=== PATIENT | male | born 1950 | race Caucasian/White ===

== ENCOUNTER 2017-10-15 07:31 | Emergency (ER) | payer MEDICARE ==
[2017-10-15 07:59] LABS: Bilirubin Negative (Negative); Blood, Urine Trace (Negative); Clarity Slightly Cloudy (Clear); Glucose, Urine (Dipstick) Negative (Negative); Leukocyte Negative (Negative); Nitrite Negative (Negative); Protein, Urine (Dipstick) Negative (Neg-Trace); Specific Gravity, Urine 1.025 (1.005-1.030); Urobilinogen 0.2 mg/dL (0.2-1.0)
[2017-10-15 08:13] LABS: Bacteria/HPF None Seen HPF (None Seen); Hyaline Casts/LPF 0-3 HYALINE CAST LPF (0-3 Hyaline); Squamous Epithelial 0-3 HPF (0-3)
== END 2017-10-15 08:26 | disposition home or self-care (01) ==
LOC: SCSER 07:31
DX: S30.813A Abrasion of scrotum and testes, initial encounter (principal); Z79.899 Other long term (current) drug therapy; X58.XXXA Exposure to other specified factors, initial encounter
CPT/HCPCS: 81003; 81015; 87086; 99284

== ENCOUNTER 2018-11-03 17:36 | Inpatient (IN) | payer MEDICARE ==
[2018-11-03] MEDS ORDERED: Pantoprazole 40 MG VIAL ONE (18:08)
[2018-11-03 18:20] LABS: #Lymphocytes 1.6 thou/uL (1.20-3.40); #Monocytes 0.8 thou/uL (0.11-0.59); #Neutrophils 13.8 thou/uL (1.40-6.50); %Basophils 0.3 % (0.0-1.0); %Lymphocytes 9.8 % (21.0-51.0); %Monocytes 4.9 % (0.0-10.0); %Neutrophils 85.1 % (42.0-75.0); Hemoglobin 18.7 g/dL (14.0-18.0); Mean Corpuscular HGB CONC 34.2 g/dL (32.0-36.0); Mean Corpuscular Hemoglobin 33.2 pg (27.0-31.0); Mean Corpuscular Volume 97.1 fL (78.0-98.0); Mean Platelet Volume 7.6 fL (7.4-10.4); Platelet Count 161 thou/uL (130-400); Red Blood Cell (RBC) Count 5.62 mill/uL (4.70-6.10); White Blood Cell (WBC) Count 16.2 thou/uL (4.8-10.8)
[2018-11-03 18:27] LABS: ALT (SGPT) 57 U/L (8-55); AST (SGOT) 31 U/L (5-34); Albumin 4.7 g/dL (3.4-4.8); Alkaline Phosphatase 66 U/L (40-150); Anion Gap 18 mmol/L (10-20); BUN (Urea Nitrogen) 27 mg/dL (8.4-25.7); Bilirubin, Total 1.7 mg/dL (0.2-1.2); CK (CPK) 56 U/L (30-200); Calc. Creatinine Clearance 0 mL/min (70-130); Calcium 10.6 mg/dL (7.8-10.44); Carbon Dioxide 28 mmol/L (23-31); Chloride 95 mmol/L (98-107); Estimated GFR-MDRD 51; Globulin 4.4 g/dL (2.4-3.5); Glucose 126 mg/dL (80-115); Lipase 24 U/L (8-78); Potassium 3.8 mmol/L (3.5-5.1); Protein, Total 9.1 g/dL (5.8-8.1); Sodium 137 mmol/L (136-145)
--- NOTE | 2018-11-03 18:59 | CT ---
CT Abdomen Pelvis W Con History: Abdominal pain and emesis and constipation. Comparison: CT abdomen and pelvis 2018 Findings: Mild atelectasis in the lung bases. No pericardial effusion. Cirrhotic morphology of the liver. Oral vein is patent. Old calcified granulomas of the spleen. Pancr eas is unremarkable. Normal proximal small bowel rotation with dilatation of the jejunum to a focal narrowing in the right upper quadrant axial image 50. There is also a focal area of abnormal hyperenhancement although could be mucosal infolding on coronal image 56 as there is dilated bowel distal to this Nonobstructive bilateral renal calculi. Prior right hemicolectomy. The distal small bowel is very thi n without any significant bowel contents. Impression: Findings of a low-grade small bowel obstruction with a gradual transition point right upp er quadrant axial image 50. Small bowel distal to the transition point is collapsed without significant bowel contents.
[2018-11-03] MEDS ORDERED: Benzocaine 20% Spray 60 ML CAN ONE (19:06)
[2018-11-03] MEDS ORDERED: Lidocaine Viscous Sol 2% 15 ml UD Cup ONE (19:06)
--- NOTE | 2018-11-03 20:08 | RAD ---
XR Chest 1 View Portable History: Chest pain Comparison: Radiograph 2011 Findings: An enteric tube is in place with tip below the diaphragm although out of field of view. Toi cified left hilar lymph nodes. Lateral plate-screw fixation right humerus. Calcified granuloma left lower lobe. No pneumothorax. No effusion. Increased pericardial fat. Impression: Enteric tube tip below diaphragm although out of field of view.
[2018-11-03] MEDS ORDERED: Ondansetron PF 4 MG/2 ML Vial IVP PRN (21:42)
[2018-11-03] MEDS ORDERED: Ondansetron ODT 4 MG TAB SL PRN (21:42)
[2018-11-03] MEDS ORDERED: Lactated Ringer's 1,000 ML IV SCH (21:45)
[2018-11-03] MEDS ORDERED: Acetaminophen 650 MG Suppository PR PRN (22:15)
--- NOTE | 2018-11-03 22:28 | PDOC.FPRHP ---
- History of Present Illness Chief Complaint: abdominal pain, distention, constipation History of Present Illness: Patient is a 68M with PMHx of partial colonic resection 15 years ago 2/2 colonic polyps, seasonal allergies and RLS who presented to the [facility] after experiencing constipation, abdominal pain, distention, and black emesis since Monday morning. He reports that the pain was sudden in onset but was relieved with emesis. This occurred multiple times throughout the 1.5 days, each time the pain being relived with emesis. Denies frequent NSAID use, frequent alcohol use, smoking, drug use. He reportedly had a colonoscopy 1 month ago that was normal. ED Course: Seen and evaluated at [facility] 2L NS 80mg Protonix Direct admit to [facility] - Allergies/Adverse Reactions Allergies Allergy/AdvReac Type Severity Reaction Status Date / Time No Known Drug Allergies Allergy Verified 11/03/18 22:11 - Home Medications Medication Instructions Recorded Confirmed Type Montelukast Sodium [Singulair] 10 mg PO DAILY PRN 11/03/18 11/03/18 History rOPINIRole HCl [Requip] 0.5 mg PO HS 11/03/18 11/03/18 History - History PMHx: seasonal allergies, restless leg syndrome PSHx: partial colonic resection 2/2 polyps, 15 years ago FHx: Mother: [place] and bilateral mastectomy for breast cancer Father: Alzheimers No hx of colon cancer Social: rare alcohol use, never smoker, no drug use - Review of Systems General: denies: fever/chills Eyes: denies: eye pain, vision changes ENT: denies: nasal congestion, rhinorrhea Respiratory: denies: cough, shortness of breath Cardiovascular: denies: chest pain Gastrointestinal: reports: vomiting, constipation, abdominal pain. denies: diarrhea, GI bleeding Genitourinary: denies: incontinence, dysuria Skin: denies: rashes, jaundice Musculoskeletal: denies: pain, swelling Neurological: denies: numbness, seizure Psychological: denies: anxiety, depression - Vital signs BP: [147/81] HR: [68] RR: [18] Tmax: [98] Pox: [98]% on [RA] Wt: [76.7kg] - Physical Exam Constitutional: NAD, awake, alert and oriented, well developed HEENT: normocephalic and atraumatic, no scleral icterus, grossly normal hearing Neck: supple, trachea midline Chest: no-tender to palpation, no lesions Heart: RRR, other (mumur present, chronic) Lungs: CTAB, no respiratory distress, good air movement Abdomen: soft, non-tender, bowel sounds present Musculoskeletal: normal structure, normal tone, ROM grossly normal Neurological: no focal deficit, normal sensation Skin: no rash/lesions, no jaundice Heme/Lymphatic: no unusual bruising or bleeding, no purpura Psychiatric: normal mood and affect, good judgment and insight, intact recent and remote memory FMR H&P: Results - Labs Result Diagrams: 11/03/18 18:05 11/03/18 18:05 Lab results: WBC 16.2 thou/uL (4.8-10.8) H 11/03/18 18:05 Hgb 18.7 g/dL (14.0-18.0) H 11/03/18 18:05 Hct 54.6 % (42.0-52.0) H 11/03/18 18:05 MCV 97.1 fL (78.0-98.0) 11/03/18 18:05 Plt Count 161 thou/uL (130-400) 11/03/18 18:05 Neutrophils % 85.1 % (42.0-75.0) H 11/03/18 18:05 Sodium 137 mmol/L (136-145) 11/03/18 18:05 Potassium 3.8 mmol/L (3.5-5.1) 11/03/18 18:05 Chloride 95 mmol/L (98-107) L 11/03/18 18:05 Carbon Dioxide 28 mmol/L (23-31) 11/03/18 18:05 BUN 27 mg/dL (8.4-25.7) H 11/03/18 18:05 Creatinine 1.39 mg/dL (0.7-1.3) H 11/03/18 18:05 Glucose 126 mg/dL (80-115) H 11/03/18 18:05 Lactic Acid 1.7 mmol/L (0.5-2.2) 11/03/18 19:47 Calcium 10.6 mg/dL (7.8-10.44) H 11/03/18 18:05 Total Bilirubin 1.7 mg/dL (0.2-1.2) H 11/03/18 18:05 AST 31 U/L (5-34) 11/03/18 18:05 ALT 57 U/L (8-55) H 11/03/18 18:05 Alkaline Phosphatase 66 U/L (40-150) 11/03/18 18:05 Creatine Kinase 56 U/L (30-200) 11/03/18 18:05 Serum Total Protein 9.1 g/dL (5.8-8.1) H 11/03/18 18:05 Albumin 4.7 g/dL (3.4-4.8) 11/03/18 18:05 Lipase 24 U/L (8-78) 11/03/18 18:05 - Radiology Interpretation CT scan - abdomen Status: report reviewed by me (Low-grade small bowel obstruction with a gradual transition point RUQ. Small bowel distal to the transition point is collapsed without significant bowel contents.) FMR H&P: A/P - Problem List (1) Small bowel obstruction Current Visit: Yes Status: Acute Code(s): K56.609 - UNSP INTESTNL OBST, UNSP TO PARTIAL VERSUS COMPLETE OBST (2) Restless leg syndrome, controlled Current Visit: Yes Status: Acute Code(s): G25.81 - RESTLESS LEGS SYNDROME - Plan 68M with PMHx of partial colonic resection 2/2 colonic polyps 15 years ago, seasonal allergies, and RLS presents with SBO. #Small Bowel Obstruction -CT abdomen showed SBO -abdomen soft, not ttp, + bs -NPO for bowel rest -IVF -Ng tube -PRN Zofran #Restless Leg Syndrome -hold home meds for now DVT Proph: SCDs Diet: NPO Code Status: Full Code Dispo: Inpatient for bowel rest and evaluation of SBO FMR H&P: Upper Level - Plan Date/Time: 11/03/18 0679 IColten MD, have evaluated this patient and agree with findings/plan as outlined by communications intern resident. Pertinent changes/additions are listed here. Brandon Mason is a 68 year old with a PMH of Restless Leg Syndrome, Seasonal alleries who presented to the [facility] ER for a 1-2 day history of abdominal pain and dark green emesis, inability to tolerate PO. He has a history of partial colon resection due to multiple polyps about 15 years ago. In [facility] ER, he had a CT abd that showed low grade small bowel obstruction. FOBT negative. Labs also significant for elevated wbc count at 16.2 and DERRICK with Cr of 1.39. NG Tube was inserted in outside ER and had return of 400 cc on bilious fluid. He was given 2 L NS in the ER and protonix. He states that he is already feeling much better after fluids and NG tube placement. We will continue decompression with NG tube and IVFs. Zofran prn for nausea. Please sign communications intern note above for full H&P. Patient's PCP is Dr. Garcia. Dr. Robin is covering Dr. Garcia's patient this weekend and Dr. Robin will take over care in the morning. Dr. Robin has been made aware of the patient and the plan of care.
[2018-11-03 23:01] VITALS: BMI 29.0
[2018-11-04 06:30] LABS: Anion Gap 12 mmol/L (10-20); BUN (Urea Nitrogen) 20 mg/dL (8.4-25.7); Calc. Creatinine Clearance 75 mL/min (70-130); Calcium 8.8 mg/dL (7.8-10.44); Carbon Dioxide 25 mmol/L (23-31); Chloride 106 mmol/L (98-107); Estimated GFR-MDRD 75; Glucose 90 mg/dL (80-115); Potassium 3.8 mmol/L (3.5-5.1); Sodium 139 mmol/L (136-145)
[2018-11-04 06:43] LABS: #Eosinphils 0.1 thou/uL (0.0-0.7); #Lymphocytes 2.2 thou/uL (1.20-3.40); #Monocytes 0.9 thou/uL (0.11-0.59); #Neutrophils 8.7 thou/uL (1.40-6.50); %Basophils 0.3 % (0.0-1.0); %Eosinophils 0.7 % (0.0-10.0); %Lymphocytes 18.3 % (21.0-51.0); %Monocytes 7.4 % (0.0-10.0); %Neutrophils 73.2 % (42.0-75.0); Hemoglobin 15.8 g/dL (14.0-18.0); Mean Corpuscular HGB CONC 33.5 g/dL (32.0-36.0); Mean Corpuscular Hemoglobin 33.6 pg (27.0-31.0); Mean Platelet Volume 8.8 fL (7.4-10.4); Platelet Count 113 thou/uL (130-400); Platelet Morphology Comment Appears Decreased; RBC Distribution Width 11.5 % (11.5-14.5); Red Blood Cell (RBC) Count 4.69 mill/uL (4.70-6.10); White Blood Cell (WBC) Count 11.9 thou/uL (4.8-10.8)
[2018-11-04] MEDS ORDERED: Ondansetron PF 4 MG/2 ML Vial IVP PRN (09:39)
[2018-11-04] MEDS: Sodium Chloride 0.9% 1,000 ML IV SCH ×2 (11:08→17:08)
--- NOTE | 2018-11-04 12:21 | HP ---
HISTORY OF PRESENT ILLNESS: This is a 68-year-old male, who presented with abdominal pain yesterday. The patient does have a history of a partial colonic resection 15 years ago. May have been from diverticulitis. He has done well since then. He presented with acute onset of abdominal pain on Monday, 2 days prior. He did not have much of an appetite and had 3 to 4 bouts of nausea and vomiting. He noted his vomitus to be dark green in color. He started a keto diet approximately 3 weeks ago. Lately, he has been increasing his fiber and eating much more vegetables that he normally would. An NG tube was placed in the emergency room and this morning, he is feeling significantly much better. He even ambulates this morning with the NG tube. PAST MEDICAL HISTORY: History of kidney stones followed by Dr. Modi on a regular basis, right arm fracture. PAST SURGICAL HISTORY: Include partial colectomy at age 50 probably related to acute diverticulitis. Last colonoscopy was September of [address] Rodríguez, which was unremarkable. FAMILY HISTORY: Mother with breast cancer. SOCIAL HISTORY: He is a nonsmoker. Drinks occasional wine and beer. He is . MEDICATIONS: 1. Singulair 10 mg daily. 2. Requip 0.5 at bedtime. ALLERGIES: NONE. REVIEW OF SYSTEMS: As above. PHYSICAL EXAMINATION: VITAL SIGNS: Temperature 98.0, pulse 65, respirations 20, pulse ox 96%, and blood pressure 130/71. GENERAL: The patient in no acute distress with the NG tube in place. HEENT: Clear. NECK: Supple. HEART: Regular rate and rhythm. LUNGS: Clear. ABDOMEN: Soft and nontender. EXTREMITIES: With no edema. LABORATORY DATA: White count 16.2 to 11.9, H and H of 15 and 45, and platelets 113. Potassium 3.8, creatinine 1.39 to 0.99, and blood sugar 90. ASSESSMENT: 1. Small bowel obstruction appears to be resolving. 2. History of a partial colectomy 20 years ago. 3. Recent change in diet, on a keto diet. 4. Normal colonoscopy in September 2018. 5. Restless legs syndrome. PLAN: 1. The patient n.p.o. at this time. 2. IV hydration. 3. NG tube in place. 4. We will consult Dr. Wyatt, General Surgery. The patient probably had a partial small bowel obstruction from scar tissue from previous surgery. It may have been triggered by a recent change in diet. Most likely needs small bowel follow-through and rule out other possible etiologies. Job ID: [id number]
[2018-11-04] MEDS: Famotidine/PF 20 mg/2ml Vial SLOW IVP SCH (20:32)
--- NOTE | 2018-11-04 22:59 | CON ---
DATE OF CONSULTATION: 11/04/2018 REQUESTING PHYSICIAN: Luis Miguel Robin MD HISTORY OF PRESENT ILLNESS: A 68-year-old man, who presented to outside hospital with a 2-day history of sudden onset upper abdominal pain, which was described as sharp and intermittent and crampy, associated with abdominal bloating, nausea, and vomiting. Emesis was initially nonbilious and it became coffee-ground. The patient was fine and presented to emergency department for evaluation. Nasogastric tube was placed at the time returning over 600 mL of bile-stained effluent. In the interim, the patient denies any fevers or chills. Last bowel movement was 3 days ago and thus the last time also he passed flatus. Normally he has 2 to 3 bowel movements daily. The patient has been on keto diet of late and also had some dark tea prior to onset of pain. CT scan of the abdomen and pelvis was obtained yesterday, which was suggestive of acute partial small-bowel obstruction. Upon my evaluation, the patient now rates his pain at 3/10. He has had no nausea or emesis since placement of the nasogastric tube. He reports no flatus. Urinary output has been adequate. PAST MEDICAL HISTORY: Significant for polyposis coli involving the right colon for which he had a partial right colectomy with primary anastomosis 20 years ago. He recently had a screening colonoscopy within the last 1 month, which was unremarkable. He has had surgery to his right shoulder. He denies any other abdominal operations. SOCIAL HISTORY: The patient is . Lives at home with his . He admits to occasional intake of ethanol in moderate amounts. He denies any cigarette smoking or illicit drug abuse. FAMILY HISTORY: Noncontributory for this patient's age. PREHOSPITAL MEDICATIONS: Include Singulair 10 mg p.o. daily and Requip 0.5 mg p.o. q.h.s. for restless legs syndrome. ALLERGIES: THE PATIENT DENIES ANY KNOWN DRUG ALLERGIES. REVIEW OF SYSTEMS: 10-point review of systems essentially unremarkable except as stated in past medical history and chief complaint. PHYSICAL EXAMINATION: GENERAL: This reveals a 68-year-old normally developed man, who is otherwise coherent and interactive and appears stated age. The patient is alert and oriented x3. He appears to be in no acute distress at time of my evaluation. VITAL SIGNS: Include blood pressure 115/66, pulse is 65, respiratory rate is 20, temperature 98 degrees Fahrenheit, oxygen saturation 96% on room air. HEENT: Reveals no jugular venous distention noted. HEART: Reveals regular rate and rhythm with 2/6 systolic murmur, which is auscultated in the left sternal border. LUNGS: Clear to auscultation bilaterally. Breathing, regular and nonlabored. ABDOMEN: Soft, nontender, nondistended. Bowel sounds in all 4 quadrants appear normoactive. Nasogastric tube is in place. Now returns clear gastric effluent in scant amount. EXTREMITIES: Reveals 2+ radial and pedal pulses bilaterally. No ankle edema is present. NEUROLOGIC: Reveals no focal deficits present. LABORATORY FINDINGS: Today include a CBC with 11,900 white blood cells, hemoglobin and hematocrit 15.8 and 47.1 respectively, platelet count is 113,000. Contrast this to CBC yesterday with 16,200 white blood cells, hemoglobin and hematocrit 18.7 and 54.6 respectively, platelet count remaining stable at 161,000. Metabolic profile today; sodium 139, potassium 3.8, chloride is 106, bicarb 25, BUN 20, creatinine 0.99, glucose is 90. I have personally reviewed the CT scan of the abdomen and pelvis, which was obtained yesterday revealing multiple distended loops of small bowel with small perhaps a transition in the right upper quadrant. There is however gas in the colon and rectum. There is no free fluid or pneumoperitoneum or pneumatosis intestinalis is noted. IMPRESSION: 1. Now resolving acute abdominal pain with nausea, vomiting, likely secondary to gastroenteritis and less likely secondary to partial small-bowel obstruction. 2. Although this patient has a previous history of abdominal surgeries, puts him at risk for adhesion-induced small-bowel obstruction. I do not suspect that to be the cause of his present symptoms, which is now resolving within 48 to 72 hours from onset. RECOMMENDATIONS: 1. Nasogastric tube will be discontinued. We will initiate clear liquid diet and encourage the patient to increase activity. 2. He will be re-evaluated within the next 24 hours and consider advancing diet if no return of abdominal pain, nausea, or vomiting. 3. If the patient's symptom recurs, we will give consideration to obtain a small-bowel follow-through to better define likely small-bowel obstruction at that time. 4. Therefore, no acute surgical indication for this patient at this time. 5. Above findings and recommendation has been discussed with the patient and his at bedside. 6. They indicated understanding information given and agree with current plans. Thank you again, Dr. Robin, for allowing me the opportunity to participate in the care of this patient. Job ID: [id number]
--- NOTE | 2018-11-05 00:59 | PRG ---
DATE OF SERVICE: 11/05/2018 SUBJECTIVE: The patient is currently on the medicine floor. He is the patient we are seeing in consultation for suspected low grade small bowel obstruction. Today, the patient had his nasogastric tube discontinued and started on a clear liquid diet. He is tolerating a diet. Denies nausea or vomiting and has begun being out of bed. Pain is controlled. OBJECTIVE: VITAL SIGNS: Stable. The patient is afebrile. GENERAL: The patient is resting comfortably in bed. He is without complaints at this time. He states that he has passed a little flatus. ABDOMEN: Soft, nontender with active bowel sounds. ASSESSMENT AND PLAN: Low grade small bowel obstruction, resolving. Plan will be to continue encouraging ambulation, being out of bed, and if he continues to tolerate clear liquids, he can be advanced. We will re-evaluate him once again tomorrow. Job ID: [id number]
[2018-11-05] MEDS: Sodium Chloride 0.9% 1,000 ML IV SCH ×2 (03:51→09:00)
[2018-11-05 05:54] LABS: #Basophils 0.1 thou/uL (0.0-0.2); #Eosinphils 0.2 thou/uL (0.0-0.7); #Lymphocytes 1.9 thou/uL (1.20-3.40); #Monocytes 0.6 thou/uL (0.11-0.59); #Neutrophils 4.5 thou/uL (1.40-6.50); %Basophils 0.8 % (0.0-1.0); %Eosinophils 2.3 % (0.0-10.0); %Lymphocytes 26.4 % (21.0-51.0); %Monocytes 8.7 % (0.0-10.0); %Neutrophils 61.8 % (42.0-75.0); Hemoglobin 14.8 g/dL (14.0-18.0); Mean Corpuscular Hemoglobin 33.9 pg (27.0-31.0); Mean Corpuscular Volume 99.8 fL (78.0-98.0); Mean Platelet Volume 8.6 fL (7.4-10.4); Platelet Count 87 thou/uL (130-400); RBC Distribution Width 11.4 % (11.5-14.5); Red Blood Cell (RBC) Count 4.37 mill/uL (4.70-6.10); White Blood Cell (WBC) Count 7.3 thou/uL (4.8-10.8)
[2018-11-05 06:09] LABS: Phosphorus 2.5 mg/dL (2.3-4.7)
[2018-11-05 06:13] LABS: Anion Gap 9 mmol/L (10-20); BUN (Urea Nitrogen) 17 mg/dL (8.4-25.7); Calc. Creatinine Clearance 70 mL/min (70-130); Calcium 8.7 mg/dL (7.8-10.44); Carbon Dioxide 25 mmol/L (23-31); Chloride 109 mmol/L (98-107); Estimated GFR-MDRD 68; Glucose 79 mg/dL (80-115); Potassium 4.1 mmol/L (3.5-5.1); Sodium 139 mmol/L (136-145)
[2018-11-05] MEDS ORDERED: PHOS-NAK 1 PKT PACK PO SCH (07:30)
[2018-11-05] MEDS: Famotidine/PF 20 mg/2ml Vial SLOW IVP SCH (08:34)
[2018-11-05] MEDS ORDERED: Enoxaparin Sodium 40 MG/0.4 ML SYRINGE SC SCH (09:00)
[2018-11-05 11:56] VITALS: BP 136/79; TEMP 97.5
--- NOTE | 2018-11-05 12:36 | PRG ---
DATE OF SERVICE: 11/05/2018 SUBJECTIVE: This is a 68-year-old gentleman, who presented to the ER after 2 days of abdominal pain, vomiting. He was evaluated by Dr. Wyatt yesterday with the diagnosis by ladle patcher to pending rule out small bowel obstruction. He was on trial of clear fluid diet since yesterday. Today, he is doing better. No abdominal pain. No nausea or vomiting. He is able to have 2 bowel movements this morning. He tolerated well with the diet. Vital signs stable. This morning, Dr. Wyatt saw him and decided that he can resume a regular diet and go home on General Surgery 's standpoint. OBJECTIVE: GENERAL: The patient is sitting down in bed comfortably in no acute distress. VITAL SIGNS: Temperature 97, heart rate 54, respiratory rate 20, O2 saturation 98% on room air, and blood pressure 136/79. LUNGS: Clear bilaterally. HEART: Regular rate and rhythm. ABDOMEN: Soft, nondistended. Normal bowel sounds. EXTREMITIES: Neurovascularly intact. ASSESSMENT: Gastroenterology: History of previous abdominal surgery. PLAN: On General Surgery standpoint, the patient's symptoms subsided. He is able to have a bowel movement to 2 times this morning. The patient can advance diet to regular diet, and he can go home on General Surgery stand point. Job ID: [id number] MTDD
--- NOTE | 2018-11-05 14:33 | PRG ---
DATE OF SERVICE: 11/04/2018 SUBJECTIVE: This is a 68-year-old gentleman, who presents to the ER due to abdominal pain for 2 days. The patient reported started having abdominal pain on Monday this week, but yesterday, abdominal pain got worse, accompanied with nausea and vomiting, and the content of vomit was dark in color. Upon arrival in the emergency room, an NG tube was placed and this morning, he is feeling much better. He developed no fever or shortness of breath. Vitals have been stable. He has been able to mobilize with NG tube. PAST SURGICAL HISTORY: Partial colectomy around 15 years ago. FAMILY HISTORY: Mother with breast cancer. SOCIAL HISTORY: Smoking, none. Drinking social. He is and lives with his . ALLERGIES: NONE. REVIEW OF SYSTEMS: Noncontributory except per HPI. PHYSICAL EXAMINATION: GENERAL: The patient is lying comfortably in bed with no acute distress. VITAL SIGNS: Temperature 97.8, heart rate 61, respiratory rate 18, O2 saturation 97%, and blood pressure 121/68 . LUNGS: Clear. HEART: Regular rate and rhythm. ABDOMEN: Soft, nondistended. Bowel sounds normal. EXTREMITIES: Normal range of motion. Neurovascularly intact. ASSESSMENT: 1. Gastroenterology: Differentiate with partial small-bowel obstruction. History of partial colectomy 15 years ago. 2. Normal colonoscopy in September 2018. PLAN: We will restart fluid diet to see how is the patient doing. If he does not tolerated fluid diet, next step would be a small bowel follow-through, x-ray to rule out total small bowel obstruction. Continue supportive care. General Surgery will check back with the patient tomorrow . The patient was seen and evaluated with Dr. Wyatt on round this morning. Dr. Wyatt will dictate evaluation and treatment plan. Job ID: [id number] MTDD
--- NOTE | 2018-11-05 15:22 | PRG ---
DATE OF SERVICE: 11/05/2018 SUBJECTIVE: The patient is doing well. He is tolerating all p.o. intake. There is also noted small bowel obstruction, has been resolved. He has been evaluated by Surgery, who feel safe to let him go home. OBJECTIVE: VITAL SIGNS: Temperature 97.5 and blood pressure 136/79. ABDOMEN: Soft and nontender. Bowel sounds present and active. No hepatosplenomegaly is noted. IMPRESSION: Resolved small bowel obstruction. PLAN: Can be discharged later today. Job ID: [id number]
--- NOTE | 2018-11-05 15:24 | PRG ---
DATE OF SERVICE: 11/05/2018 Mr. Mason is now tolerating all p.o. intake. He is ready to go home. I will dictate again. Job ID: [id number]
== END 2018-11-05 14:37 | disposition home or self-care (01) | DRG 389 ==
LOC: SCSER 17:36 → T4-A 20:25
PROVIDERS: ADMIT Family Medicine; ATTEND Family Medicine
DX: K56.600 Partial intestinal obstruction, unspecified as to cause (principal); N17.9 Acute kidney failure, unspecified; J30.2 Other seasonal allergic rhinitis; K59.00 Constipation, unspecified; G25.81 Restless legs syndrome; Z90.49 Acquired absence of other specified parts of digestive tract
CPT/HCPCS: 36415; 71045; 74177; 80048; 80053; 82274; 82550; 83605; 83690; 83735; 84100; 84484; 85025; 93005; 96361; 96372; 96374; 99213; C9113; G0463; J1650; J2550; S0028

== ENCOUNTER 2018-12-14 12:20 | Emergency (ER) | payer MEDICARE ==
[2018-12-14 13:21] LABS: #Basophils 0.1 thou/uL (0.0-0.2); #Eosinphils 0.1 thou/uL (0.0-0.7); #Lymphocytes 1.7 thou/uL (1.20-3.40); #Monocytes 0.5 thou/uL (0.11-0.59); #Neutrophils 4.8 thou/uL (1.40-6.50); %Basophils 0.9 % (0.0-1.0); %Eosinophils 0.7 % (0.0-10.0); %Lymphocytes 23.6 % (21.0-51.0); %Monocytes 7.6 % (0.0-10.0); %Neutrophils 67.2 % (42.0-75.0); Mean Corpuscular HGB CONC 35.3 g/dL (32.0-36.0); Mean Corpuscular Hemoglobin 33.9 pg (27.0-31.0); Mean Corpuscular Volume 96.1 fL (78.0-98.0); Mean Platelet Volume 9.5 fL (7.4-10.4); Platelet Count 134 thou/uL (130-400); RBC Distribution Width 11.1 % (11.5-14.5); Red Blood Cell (RBC) Count 4.71 mill/uL (4.70-6.10); White Blood Cell (WBC) Count 7.1 thou/uL (4.8-10.8)
--- NOTE | 2018-12-14 13:23 | RAD ---
Exam: Chest one view HISTORY:Light headedness Comparison: 11/03/2018 FINDINGS: Lungs: The lungs are overpenetrated. This does limit sensitivity. No obvious consolidation, however. Cardiac silhouette:Stable prominence. There is perihilar granulomatous calcification Pulmonary vessels: No significant congestion Pleural Spaces: Clear Pneumothorax: None Osseous abnormalities: None of acuity. IMPRESSION: No focal consolidation
[2018-12-14 13:34] LABS: ALT (SGPT) 59 U/L (8-55); AST (SGOT) 32 U/L (5-34); Albumin 3.9 g/dL (3.4-4.8); Alkaline Phosphatase 68 U/L (40-150); Anion Gap 15 mmol/L (10-20); BUN (Urea Nitrogen) 20 mg/dL (8.4-25.7); Bilirubin, Total 0.9 mg/dL (0.2-1.2); Calc. Creatinine Clearance 0 mL/min (70-130); Calcium 9.9 mg/dL (7.8-10.44); Carbon Dioxide 24 mmol/L (23-31); Chloride 104 mmol/L (98-107); Estimated GFR-MDRD 74; Globulin 3.6 g/dL (2.4-3.5); Glucose 93 mg/dL (80-115); Potassium 4.2 mmol/L (3.5-5.1); Protein, Total 7.5 g/dL (5.8-8.1); Sodium 139 mmol/L (136-145)
--- NOTE | 2018-12-14 13:56 | CT ---
CT BRAIN WITHOUT CONTRAST: Date: 12/14/18 HISTORY: Syncope, lightheadedness. FINDINGS: There are no previous exams for comparison. No evidence of infarct, hemorrhage, midline shift, or abnormal extra-axial fluid collections are seen . The ventricular size is appropriate and the basilar cisterns are patent. The bony calvarium is inta ct. The visualized paranasal sinuses and mastoid air cells are well aerated. IMPRESSION: No CT evidence of acute intracranial process. POS: [facility]PC
[2018-12-14 15:53] LABS: Bilirubin Negative (Negative); Blood, Urine Trace (Negative); Clarity Clear (Clear); Glucose, Urine (Dipstick) Negative (Negative); Leukocyte Negative (Negative); Nitrite Negative (Negative); Protein, Urine (Dipstick) Negative (Neg-Trace); Urobilinogen 0.2 mg/dL (Less than 2)
[2018-12-14 15:55] LABS: Bacteria/HPF Rare-Few HPF (None Seen); RBC/HPF 0-3 HPF (0-3); Squamous Epithelial None Seen HPF (0-3); WBC/HPF None Seen HPF (0-3)
== END 2018-12-14 16:37 | disposition home or self-care (01) ==
LOC: SCSER 12:20
DX: I95.1 Orthostatic hypotension (principal); J30.2 Other seasonal allergic rhinitis; Z79.899 Other long term (current) drug therapy
CPT/HCPCS: 36415; 70450; 71045; 80053; 81003; 81015; 84484; 85025; 93005

== ENCOUNTER 2024-01-16 13:53 | Outpatient (CLI) | payer MEDICARE ==
[2024-01-16 14:52] LABS: #Basophils 0.03 10x3/uL (0.0-0.2); %Basophils 0.5 % (0.0-1.0); %Eosinophils 1.4 % (0.0-10.0); %Lymphocytes 20.4 % (21.0-51.0); %Monocytes 9.9 % (0.0-10.0); %Neutrophils 67.3 % (42.0-75.0); Hematocrit 44.5 % (42.0-52.0); Hemoglobin 15.2 g/dL (14.0-18.0); Mean Corpuscular HGB CONC 34.2 g/dL (32.0-36.0); Mean Corpuscular Volume 102.5 fL (78.0-98.0); Mean Platelet Volume 11.1 fL (7.4-10.4); Platelet Count 160 10x3/uL (130-400); RBC Distribution Width 13.2 % (11.5-14.5); Red Blood Cell (RBC) Count 4.34 mill/uL (4.70-6.10)
[2024-01-16 15:10] LABS: ALT (SGPT) 99 U/L (8-55); AST (SGOT) 141 U/L (5-34); Albumin 3.2 g/dL (3.4-4.8); Alkaline Phosphatase 378 U/L (40-110); Bilirubin, Direct 0.9 mg/dL (0.1-0.3); Bilirubin, Total 2.3 mg/dL (0.2-1.2); INR-International Normal Ratio 1.3; PTT 32.5 sec (22.9-36.1); Protein, Total 7.5 g/dL (5.8-8.1); Prothrombin Time 16.6 sec (12.0-14.7)
[2024-01-16 15:11] LABS: Anion Gap 11 mmol/L (10-20); BUN (Urea Nitrogen) 13 mg/dL (8.4-25.7); Calc. Creatinine Clearance 0 mL/min (70-130); Calcium 8.7 mg/dL (7.8-10.44); Carbon Dioxide 25 mmol/L (23-31); Chloride 105 mmol/L (98-107); Estimated GFR 77; Glucose 144 mg/dL (83-110); Potassium 4.3 mmol/L (3.5-5.1); Sodium 137 mmol/L (136-145)
== END 2024-01-16 13:54 | disposition home or self-care (01) ==
LOC: LABBT 13:53
PROVIDERS: ATTEND Urology
DX: Z01.818 Encounter for other preprocedural examination (principal); R31.0 Gross hematuria
CPT/HCPCS: 80048; 80076; 85025; 85610; 85730; 87086; 93005; 93010

== ENCOUNTER → 2024-01-22 | Day surgery (SDC) | payer MEDICARE ==
[2024-01-16 14:12] VITALS: BMI 29.5
[~2024-01-22] MED LIST: CEFAZOLIN 2 GM VIAL ONE; Dexamethasone 4 mg/ml Vial ONE; Iopamidol 30 ML ONE; Ketorolac Tromethamine 30 MG (1 mL) VIAL ONE; Lidocaine 1% PF 5 ML VIAL ONE; Midazolam HCl 2 mg/2 ml Vial ONE; Ondansetron PF 4 MG/2 ML Vial ONE; PHENYLEPHRINE-NS 100 MCG/ML 10 ML SYRINGE ONE; PROPOFOL 20 ML ONE; Rocuronium Bromide 10 MG/ML (10ML VIAL) ONE; SUGAMMADEX SODIUM 200 MG/2 ML VIAL ONE; fentaNYL 50 mcg/mL 1 mL Vial ONE; fentaNYL PF 100 MCG/2 ML SYRINGE ONE
== END ==
LOC: SDC 11:51
PROVIDERS: ATTEND Urology
PROC: 0TB68ZX Excision of Right Ureter, Via Natural or Artificial Opening Endoscopic, Diagnostic (ICD-10-PCS; principal; 2024-01-22)
DX: D30.21 Benign neoplasm of right ureter (principal); K74.60 Unspecified cirrhosis of liver; Z98.52 Vasectomy status; Z79.899 Other long term (current) drug therapy
CPT/HCPCS: 52007; 74420; C2617; J1100; J1885; J2250; J2405; J2704; J3010; Q9967; 88104; 88112

== ENCOUNTER 2024-02-07 12:05 | Outpatient (CLI) | payer MEDICARE ==
[2024-02-07 15:23] LABS: #Basophils 0.03 10x3/uL (0.0-0.2); %Basophils 0.3 % (0.0-1.0); %Eosinophils 1.3 % (0.0-10.0); %Lymphocytes 12.2 % (21.0-51.0); %Monocytes 10.2 % (0.0-10.0); %Neutrophils 74.8 % (42.0-75.0); Hematocrit 41.2 % (42.0-52.0); Hemoglobin 14.1 g/dL (14.0-18.0); Mean Corpuscular HGB CONC 34.2 g/dL (32.0-36.0); Mean Corpuscular Hemoglobin 34.6 pg (27.0-31.0); Mean Platelet Volume 10.9 fL (7.4-10.4); Platelet Count 204 10x3/uL (130-400); RBC Distribution Width 15.3 % (11.5-14.5); Red Blood Cell (RBC) Count 4.08 mill/uL (4.70-6.10)
[2024-02-07 15:36] LABS: INR-International Normal Ratio 1.6; Prothrombin Time 18.7 sec (12.0-14.7)
[2024-02-07 15:37] LABS: PTT 32.5 sec (22.9-36.1)
[2024-02-07 15:59] LABS: Anion Gap 11 mmol/L (10-20); BUN (Urea Nitrogen) 13 mg/dL (8.4-25.7); Calc. Creatinine Clearance 0 mL/min (70-130); Calcium 8.2 mg/dL (7.8-10.44); Carbon Dioxide 22 mmol/L (23-31); Chloride 102 mmol/L (98-107); Estimated GFR 94; Glucose 88 mg/dL (83-110); Potassium 3.8 mmol/L (3.5-5.1); Sodium 131 mmol/L (136-145)
[2024-02-07 16:02] LABS: ALT (SGPT) 152 U/L (8-55); AST (SGOT) 204 U/L (5-34); Albumin 2.6 g/dL (3.4-4.8); Alkaline Phosphatase 478 U/L (40-110); Bilirubin, Direct 2.3 mg/dL (0.1-0.3); Bilirubin, Total 4.4 mg/dL (0.2-1.2); Protein, Total 7.5 g/dL (5.8-8.1)
== END 2024-02-07 12:06 | disposition home or self-care (01) ==
LOC: LABBT 12:05
PROVIDERS: ATTEND Urology
DX: Z01.812 Encounter for preprocedural laboratory examination (principal); N20.0 Calculus of kidney; R31.0 Gross hematuria
CPT/HCPCS: 80048; 80076; 85025; 85610; 85730; 87077; 87086

== ENCOUNTER 2024-02-19 06:55 | Day surgery (SDC) | payer MEDICARE ==
[2024-02-07 12:41] VITALS: BMI 28.8
[2024-02-19] MEDS ORDERED: PROPOFOL 20 ML ONE (07:32)
[2024-02-19] MEDS ORDERED: fentaNYL PF 100 MCG/2 ML SYRINGE ONE (07:32)
[2024-02-19] MEDS ORDERED: LevoFLOXacin D5W 500 mg (100 mL) BAG ONE (07:50)
[2024-02-19] MEDS ORDERED: Rocuronium Bromide 10 MG/ML (10ML VIAL) ONE (08:09)
[2024-02-19] MEDS ORDERED: Lidocaine 1% PF 5 ML VIAL ONE (08:09)
[2024-02-19] MEDS ORDERED: Ondansetron PF 4 MG/2 ML Vial ONE (08:13)
[2024-02-19] MEDS ORDERED: Dexamethasone 4 mg/ml Vial ONE (08:13)
[2024-02-19] MEDS ORDERED: SUGAMMADEX SODIUM 200 MG/2 ML VIAL ONE (08:17)
[2024-02-19] MEDS ORDERED: Iopamidol 30 ML ONE (09:08)
[2024-02-19] MEDS ORDERED: HYDROcodone/Acetaminophen 5/325 mg Tablet ONE (10:33)
== END 2024-02-19 11:13 | disposition home or self-care (01) ==
LOC: SDC 06:55
PROVIDERS: ATTEND Urology
PROC: 0T768DZ Dilation of Right Ureter with Intraluminal Device, Via Natural or Artificial Opening Endoscopic (ICD-10-PCS; principal; 2024-02-19)
DX: N20.0 Calculus of kidney (principal); R31.0 Gross hematuria; F41.9 Anxiety disorder, unspecified; Z90.49 Acquired absence of other specified parts of digestive tract; Z98.890 Other specified postprocedural states; Z79.899 Other long term (current) drug therapy; Z88.1 Allergy status to other antibiotic agents; Z88.8 Allergy status to other drugs, medicaments and biological substances
CPT/HCPCS: 52332; 74420; C1747; C1769; C2617; J1100; J1956; J2405; J2704; Q9967